=== PATIENT | male | born 1995 | race Two or more races ===

== ENCOUNTER 2023-09-16 00:39 | Emergency (ER) | payer OTHER ==
[~2023-09-16] VITALS: Ht 185.4 cm; Wt 84.1 kg
[2023-09-16 00:45] VITALS: BP 138/83; PULSE 61; RESP 18; TEMP 98.2
[2023-09-16] MEDS ORDERED: KETOROLAC TROMETHAMINE 60 MG/2 ML VIAL IM ONE (02:00)
[2023-09-16] MEDS ORDERED: METHOCARBAMOL 500 MG TABLET PO ONE (02:00)
== END 2023-09-16 02:48 | disposition left against medical advice (07) ==
LOC: EMS 00:39
DX: R51.9 Headache, unspecified (principal); M54.50 Low back pain, unspecified; Z53.21 Procedure and treatment not carried out due to patient leaving prior to being seen by health care provider
CPT/HCPCS: 99281